=== PATIENT | female | born 1990 | race Caucasian/White ===

== ENCOUNTER 2019-10-13 17:15 | Emergency (ER) | payer OTHER, SELFPAY ==
--- NOTE | 2019-10-13 17:34 | ED.UPPEXIN ---
HPI - Extremity Injury (Upper) General Chief Complaint: Extremity Injury, Upper Stated Complaint: left wrist pain Time Seen by Provider: 10/13/19 17:34 Source: patient and RN notes reviewed History of Present Illness HPI narrative: Patient is a 29-year-old female who presents the urgent care with complaints of left wrist pain. Patient states that she was at work Sunday, lifting a heavy box, and immediately felt a sharp pain in her wrist. Patient states that she had no trauma or known injury to the wrist. Patient states that she came here for a work note . Patient was hoping to get off work due to her pain . Patient has been using ice and elevating but denies any use of [id number] medications for her pain. No other acute complaints. No acute distress noted. Patient aware of the plan of care. Related Data Home Medications Medication Instructions Recorded Confirmed No Home Medications 10/13/19 10/13/19 Allergies Allergy/AdvReac Type Severity Reaction Status Date / Time Cat Dander Allergy Unknown Unknown Uncoded 10/13/19 17:19 Review of Systems Review of Systems: Narrative: CONSTITUTIONAL: Denies fever, chills, or sweats. EYES: Denies visual changes, redness, or discharge. ENT: Denies rhinorrhea, congestion, sore throat, or otalgia. CARDIOVASCULAR: Denies chest pain, palpitations, or edema. RESPIRATORY: Denies cough or dyspnea. GASTROINTESTINAL: Denies abdominal pain, nausea, vomiting, or diarrhea. GENITOURINARY: Denies dysuria or hematuria. SKIN: Denies rash or itching. MUSCULOSKELETAL: Left wrist pain without known injury or trauma NEUROLOGIC: Denies headache, numbness, or weakness. All other systems reviewed are negative, except as documented in HPI. [facility] Social History Social History (System 09/23/19 @ 09:01 by July Long) Smoking status: Never smoker Gender identity (if verbalized by the patient): Female Comments At the time of my signature, I reviewed and agree with the nursing past medical, surgical, social, and family history. There is no relevant family history pertinent to the patient complaint. Exam Narrative: Exam Narrative: GENERAL: This is a well-nourished, well-developed patient, in no apparent distress. HEAD: normocephalic, atraumatic. EYES: PERRL. Sclera clear/white. Vision is grossly intact. EARS: External ears normal NOSE: External nose normal with no obvious nasal discharge, nares without redness, no rhinorrhea. THROAT: Mucous membranes moist NECK: Neck supple SKIN: warm, intact with no suspicious lesions or rash, good texture and turgor. NEURO: awake, alert, and oriented to person, place and time. There were no obvious focal neurologic abnormalities. EXTREMITIES: No obvious edema, ecchymosis, erythema noted to the left wrist. No obvious deformity or fracture. Fine point tenderness to left palmar aspect of thenar eminence and wrist. Positive strong left radial pulse with capillary refill less than 2 seconds. Range of motion within normal limits with mild complaints of pain. Ability to make a fist without difficulty. Course Vital Signs Vital signs: Vital Signs Temperature 98.7 F 10/13/19 17:39 Pulse Rate 83 10/13/19 17:39 Respiratory Rate 16 10/13/19 17:39 Blood Pressure 134/88 10/13/19 17:39 Pulse Oximetry 100 10/13/19 17:39 Temperature 98.7 F 10/13/19 17:39 Pulse Rate 83 10/13/19 17:39 Respiratory Rate 16 10/13/19 17:39 Blood Pressure 134/88 10/13/19 17:39 Pulse Oximetry 100 10/13/19 17:39 Reviewed MDM - Extremity Injury (Upper) MDM Narrative Medical decision making narrative: Advised the patient to wear an Vinicio wrap to the left wrist or cock up splint. Both are used as support mechanisms to decrease pain or any further injury. Use Tylenol/ibuprofen as needed for pain. Recommended patient to avoid lifting anything over 5 pounds for the next 3 to 5 days or until normal activity as tolerated. Patient is aware that we do n
[2019-10-13 17:39] VITALS: BP 134/88; PULSE 83; RESP 16; TEMP 37.1; O2SAT 100
== END 2019-10-13 17:50 | disposition home or self-care (01) ==
PROVIDERS: Emergency Provider Nurse Practitioner Family
DX: S63.502A Unspecified sprain of left wrist, initial encounter (principal); X50.0XXA Overexertion from strenuous movement or load, initial encounter
CPT/HCPCS: 99212; G0463

== ENCOUNTER 2019-10-16 18:05 | Emergency (ER) | payer OTHER, SELFPAY ==
--- NOTE | ~2019-10-16 | XR_ITS ---
EXAMINATION: XR wrist LT min 3V DATE: 10/16/2019 18:35 INDICATION: Diffuse left wrist pain post lifting injury TECHNIQUE: Posteroanterior, ulnar deviation, oblique, and lateral views of the left wrist were obtain ed. COMPARISON: none FINDINGS: Alignment is normal. No fracture. Joint spaces are normal. Soft tissues are unremarkable. IMPRESSION: 1. Negative left wrist radiographs. Reviewed, dictated and finalized at location [facility].
[2019-10-16 18:09] VITALS: BP 144/79; PULSE 93; RESP 18; TEMP 37; O2SAT 100
--- NOTE | 2019-10-16 18:59 | ED.GENADULT ---
HPI - General Adult General Chief complaint: Extremity Injury, Upper <Norberto Thapa PA-C - Last Filed: 10/16/19 19:06> Stated complaint: left wrist injjury <Norberto Thapa PA-C - Last Filed: 10/16/19 19:06> Time Seen by Provider: 10/16/19 18:14 <Norberto Thapa PA-C - Last Filed: 10/16/19 19:06> Source: patient <Norberto Thapa PA-C - Last Filed: 10/16/19 19:06> Mode of arrival: ambulatory <Norberto Thapa PA-C - Last Filed: 10/16/19 19:06> Limitations: no limitations <CALLIE Moore Last Filed: 10/16/19 19:06> History of Present Illness HPI narrative: Patient in the room is a 29-year-old female who presents with left wrist pain noting that she injured the wrist at work while holding an object and has since had pain along the radial and ulnar aspect of the wrist patient denies other injuries or complaints or prior injury has been taking [id number] medication with minimal improvement continues to have pain despite a few days duration of Vinicio wrap and pain medicine <Norberto Thapa PA-C - Last Filed: 10/16/19 19:06> Related Data Allergies/adverse reactions: Allergies Allergy/AdvReac Type Severity Reaction Status Date / Time Cat Dander Allergy Unknown Unknown Uncoded 10/16/19 18:22 <Norberto Thapa PA-C - Last Filed: 10/16/19 19:06> Review of Systems Review of Systems: All systems reviewed & are unremarkable except as noted in HPI and below <Norberto Thapa PA-C - Last Filed: 10/16/19 19:06> PMFSH Social History Social History: Social History Smoking status: Never smoker Gender identity (if verbalized by the patient): Female <CALLIE Moore Last Filed: 10/16/19 19:06> Exam Narrative: Exam Narrative: GENERAL: Well-appearing, well-nourished, and in no acute distress. HEAD: Normocephalic, atraumatic. EYES: PERRLA and EOMI. ENT: Nares clear, no rhinorrhea or epistaxis. Mucous membranes moist. EXTREMITIES: Normal range of motion. No edema. Tenderness of the radial and ulnar aspect of the wrist. No deformity noted SKIN: Warm, dry, no rash. NEURO: No focal deficits. Alert and oriented x3. Cranial nerves II through XII grossly intact. PSYCH: Normal mood and affect. <CALLIE Moore Last Filed: 10/16/19 19:06> Course Course Emergency Course: Patient in the room in no distress aware of case findings treatment plan and diagnosis <Norberto Thapa PA-C - Last Filed: 10/16/19 19:06> Vital Signs Vital signs: Vital Signs Temperature 37.0 C 10/16/19 18:09 Pulse Rate 93 10/16/19 18:09 Respiratory Rate 18 10/16/19 18:09 Blood Pressure 144/79 H 10/16/19 18:09 Pulse Oximetry 100 10/16/19 18:09 Temperature 37.0 C 10/16/19 18:09 Pulse Rate 93 10/16/19 18:09 Respiratory Rate 18 10/16/19 18:09 Blood Pressure 144/79 H 10/16/19 18:09 Pulse Oximetry 100 10/16/19 18:09 <Norberto Thapa PA-C - Last Filed: 10/16/19 19:06> Vital Signs Temperature 37.0 C 10/16/19 18:09 Pulse Rate 93 10/16/19 18:09 Respiratory Rate 18 10/16/19 18:09 Blood Pressure 144/79 H 10/16/19 18:09 Pulse Oximetry 100 10/16/19 18:09 Temperature 37.0 C 10/16/19 18:09 Pulse Rate 93 10/16/19 18:09 Respiratory Rate 18 10/16/19 18:09 Blood Pressure 144/79 H 10/16/19 18:09 Pulse Oximetry 100 10/16/19 18:09 <Jose A Vargas MD - Last Filed: 10/17/19 07:00> Medical Decision Making MDM Narrative Medical decision making narrative: Patients injury or pain is consistent with musculoskeletal etiology. No signs of neurological or vascular compromise on exam. Compartments and tisues are soft without signs of compartment syndrome. Pain is felt appropriate for further evaluation on an outpatient basis. <CALLIE Moore Last Filed: 10/16/19 19:06> Vital Signs Vital Signs: Vital Signs Temper
== END 2019-10-16 19:11 | disposition home or self-care (01) ==
PROVIDERS: Emergency Provider Emergency Medicine
DX: S63.502A Unspecified sprain of left wrist, initial encounter (principal); S66.912A Strain of unspecified muscle, fascia and tendon at wrist and hand level, left hand, initial encounter; X58.XXXA Exposure to other specified factors, initial encounter
CPT/HCPCS: 73110; 99283

== ENCOUNTER 2020-07-29 17:13 | Emergency (ER) | payer SELFPAY ==
--- NOTE | ~2020-07-29 | CT_ITS ---
EXAMINATION: CT abdomen pelvis w con DATE: 07/29/2020 19:26 INDICATION: Appendicitis TECHNIQUE: Computed tomography (CT) of the abdomen and pelvis was performed with 100 cc Omnipaque 350 intravenous contrast. Automated exposure control and iterative reconstruction technique were employe d. Exam dose: 903.66 mGy-cm total exam DLP. COMPARISON: 01/25/2019 CT abdomen pelvis FINDINGS: The lung bases are clear. Normal heart size. No pericardial or pleural effusion. The liver, gallbladder, bile ducts, spleen, pancreas, pancreatic duct, and adrenal glands and kidneys appear normal. No urinary tract calculus or hydroureteronephrosis. The urinary bladder is unremarkab le. Peripherally enhancing probable ruptured 1.7 cm right ovarian corpus luteum cyst. The uterus and adnexal areas are otherwise unremarkable. There is mild free fluid in the cul-de-sac, likely physiolo gic. Normal appendix adjacent to the right ovary and ruptured corpus luteum cyst. No bowel obstruction, bowel wall thickening, pneumatosis or intraperitoneal free air. Small fat-containing umbilical hernia. Included skeletal structures are unremarkable. IMPRESSION: 1.7 cm right ovarian probable ruptured corpus luteum cyst and mild free fluid in the cul -de-sac Normal appendix adjacent to right ovary Reviewed, dictated and finalized at [facility]. Reviewed, dictated and finalized at location [facility]. IMPRESSION: 1.7 cm right ovarian probable ruptured corpus luteum cyst and mild free fluid in the cul-de-sac Normal appendix adjacent to right ovary
[2020-07-29 17:15] VITALS: BP 130/77; PULSE 91; RESP 18; TEMP 36.1; O2SAT 96
[2020-07-29 17:31] LABS: Basophils Absolute Auto 0.1 K/mm3 (0.0-0.1); Basophils Percent Auto 0.5 % (0.2-1.2); Eosinophils Absolute Auto 0.1 K/mm3 (0-0.3); Eosinophils Percent Auto 0.5 % (0-4.4); Hematocrit 38.2 % (37.0-47.0); Hemoglobin 12.8 g/dL (12.0-15.0); Immature Granulocyte Absolute 0.03 K/mm3 (0.00-0.031); Immature Granulocyte Percent A 0.3 % (0-0.5); Lymphocytes Percent Auto 24.4 % (18.3-44.2); Mean Corpuscular HGB Conc 33.5 g/dl (32-36); Mean Corpuscular Hemoglobin 30.7 pg (26-34); Mean Corpuscular Volume 91.6 fl (80-100); Mean Platelet Volume 10.1 fl (7.4-10.4); Monocytes Absolute Auto 0.9 K/mm3 (0.1-0.6); Monocytes Percent Auto 8.4 % (2.6-8.5); Neutrophils Absolute Auto 7.3 K/mm3 (1.3-6.7); Neutrophils Percent Auto 65.9 % (45.5-73.1); Platelet Count Result 405 k/mm3 (150-375); Red Blood Count 4.17 M/mm3 (4.2-5.4); Red Cell Distribution Width 13.1 % (11.5-14.5); White Blood Count 11.1 K/mm3 (4.5-10.0)
[2020-07-29 17:44] LABS: Alanine Aminotransferase 29 U/L (4-35); Albumin Level 4.6 g/dL (3.5-5.1); Alkaline Phosphatase 75 U/L (38-126); Anion Gap 8 mmol/L (8-16); Aspartate Amino Transferase 33 U/L (14-36); Bilirubin,Total 0.2 mg/dL (0.2-1.3); Blood Urea Nitrogen 15 mg/dL (7-17); Calcium 9.6 mg/dL (8.4-10.2); Carbon Dioxide 27 mmol/L (22-30); Chloride 103 mmol/L (98-107); Estimated CRCL calculation 96 ml/min; Estimated Glomerular Filt Rate > 60; Glucose 90 mg/dL (65-105); Lipase 63 U/L (23-300); Potassium 3.8 mmol/L (3.4-5.0); Sodium 138 mmol/L (137-145)
[2020-07-29 18:24] VITALS: BP 128/73; PULSE 86
[2020-07-29 18:26] VITALS: BP 123/84; PULSE 90
[2020-07-29 18:27] VITALS: BP 119/69; PULSE 92
[2020-07-29 18:45] LABS: Add Urine Microscopic? YES; Appearance Urine Cloudy (Clear); Bacteria Urine Trace /hpf; Bilirubin Urine Negative (Negative); Blood Urine Negative (Negative); Color Urine Yellow (Yellow); Glucose Urine UA Negative (Negative); Ketones Urine Negative (Negative); Leukocyte Esterase Ur 3+ LEU/UL (Negative); Mucus Urine Rare /lpf; Nitrate Urine Negative (Negative); Protein Urine Negative (Negative); Specific Grav Ur 1.016 (1.001-1.035); Squamous Epithelial Cell Urine Moderate /hpf (Few); Urobilinogen Urine Negative mg/dL (<2.0)
[2020-07-29] MEDS: SODIUM CHLORIDE 0.9% IV 1,000 ML 999 ML IV CONT (19:02)
[2020-07-29] MEDS: FAMOTIDINE 20 MG/2 ML VIAL IV PUSH (19:02)
[2020-07-29] MEDS: ONDANSETRON INJ 4 MG/2 ML VIAL IV PUSH (19:02)
[2020-07-29 19:30] VITALS: BP 124/78; PULSE 88; RESP 16; O2SAT 98
--- NOTE | 2020-07-29 20:23 | ED.GENADULT ---
HPI - General Adult General Chief complaint: Nausea/Vomiting/Diarrhea Stated complaint: N/V x3 days, migraine Time Seen by Provider: 07/29/20 18:07 Source: patient Mode of arrival: ambulatory Limitations: no limitations History of Present Illness HPI narrative: Patient is a 30-year-old female who presents to emergency department for evaluation of vomiting for 3 days patient notes some discomfort of the abdomen localized to the periumbilical and right lower quadrant region patient notes with p.o. intake she has emesis denies any diarrhea urinary vaginal complaints or URI symptoms presents in no distress has not taken anything for her symptoms Related Data Allergies Allergy/AdvReac Type Severity Reaction Status Date / Time Cat Dander Allergy Unknown Unknown Uncoded 07/29/20 19:13 Review of Systems Review of Systems: All systems reviewed & are unremarkable except as noted in HPI and below PMFSH Past Medical History Medical History Corpus luteum cyst Irritable bowel syndrome Vomiting Social History Social History Smoking status: Never smoker Gender identity (if verbalized by the patient): Female Exam Narrative: Exam Narrative: GENERAL: Well-appearing, obese, and in no acute distress. HEAD: Normocephalic, atraumatic. EYES: PERRLA and EOMI. ENT: Nares clear, no rhinorrhea or epistaxis. Mucous membranes moist. CHEST: Clear to auscultation. No respiratory distress. No wheezes rales or rhonchi HEART: Regular rate and rhythm. No murmur heard. Normal peripheral pulses. ABDOMEN: Soft, periumbilical and right lower quadrant tenderness to palpation r, nondistended EXTREMITIES: Normal range of motion. No edema. SKIN: Warm, dry, no rash. NEURO: No focal deficits. Alert and oriented x3. PSYCH: Normal mood and affect. Course Course Emergency Course: Patient in the room no distress aware of case findings treatment plan diagnosis agreeing to follow-up as directed or to return if symptoms worsen or concerns Vital Signs Vital signs: Vital Signs Temperature 96.9 F L 07/29/20 17:15 Pulse Rate 91 07/29/20 17:15 Respiratory Rate 18 07/29/20 17:15 Blood Pressure 130/77 07/29/20 17:15 Pulse Oximetry 96 07/29/20 17:15 Temperature 96.9 F L 07/29/20 17:15 Pulse Rate 88 07/29/20 19:30 Respiratory Rate 16 07/29/20 19:30 Blood Pressure 124/78 07/29/20 19:30 Pulse Oximetry 98 07/29/20 19:30 Medical Decision Making MDM Narrative Medical decision making narrative: Patient found to have corpus luteum cyst as the likely etiology of her symptoms will be referred to gynecology and primary care for further evaluation patient was hydrated given medications tolerating p.o. intake feeling better at this time felt appropriate for outpatient reevaluation afebrile nontoxic-appearing no distress. ABCs and vital signs intact and stable. Patient provided with reasons to return Vital Signs Vital Signs: Vital Signs Temperature 96.9 F L 07/29/20 17:15 Pulse Rate 91 07/29/20 17:15 Respiratory Rate 18 07/29/20 17:15 Blood Pressure 130/77 07/29/20 17:15 Pulse Oximetry 96 07/29/20 17:15 Temperature 96.9 F L 07/29/20 17:15 Pulse Rate 88 07/29/20 19:30 Respiratory Rate 16 07/29/20 19:30 Blood Pressure 124/78 07/29/20 19:30 Pulse Oximetry 98 07/29/20 19:30 Lab Data Result diagrams: 07/29/20 17:22 07/29/20 17:22 Labs: Lab Results 07/29/20 07/29/20 07/29/20 Range/Units 17:22 17:22 18:29 WBC 11.1 H (4.5-10.0) K/mm3 RBC 4.17 L (4.2-5.4) M/mm3 Hgb 12.8 (12.0-15.0) g/dL Hct 38.2 (37.0-47.0) % MCV 91.6 (80-100) fl MCH 30.7 (26-34) pg MCHC 33.5 (32-36) g/dl RDW 13.1 (11.5-14.5) % Plt Count 405 H (150-375) k/mm3 MPV 10.1 (7.4-10.4) fl Immature Gran % (Auto) 0.3 (0-0.5) % Neut % (Auto) 6
== END 2020-07-29 20:54 | disposition home or self-care (01) ==
PROVIDERS: Emergency Provider Emergency Medicine
DX: N83.11 Corpus luteum cyst of right ovary (principal); R10.33 Periumbilical pain; K58.9 Irritable bowel syndrome, unspecified
CPT/HCPCS: 36415; 51701; 74177; 80053; 81001; 81025; 83690; 85025; 87086; 87088; 96361; 96365; 96375; 99284; J0131; J2405; J7030; Q9967

== ENCOUNTER 2020-08-03 02:47 | Emergency (ER) | payer SELFPAY ==
--- NOTE | ~2020-08-03 | CT_ITS ---
EXAMINATION: CT abdomen pelvis w con DATE: 08/03/2020 04:00 INDICATION: Right lower quadrant pain. Patient recently diagnosed with ruptured ovarian cyst. TECHNIQUE: Computed tomography (CT) of the abdomen and pelvis was performed with 100 cc Omnipaque 350 intravenous contrast. The dose-length product was 939.26 mGy-cm. Automated exposure control and iter ative reconstruction technique were employed. COMPARISON: CT dated 07/29/2020. FINDINGS: Lung bases unremarkable. Heart size normal. No significant pleural or pericardial effusion. The liver, spleen, pancreas, adrenal glands and kidneys are unremarkable. There is an involuting thomas us luteal cyst of the right ovary measuring 1.6 cm. Trace free fluid in the pelvis. No significant va scular abnormality. No lymphadenopathy. Nonobstructive bowel gas pattern. No hydronephrosis. Normal a ppendix. Small fat-containing umbilical hernia. No lytic or blastic lesions. IMPRESSION: 1. Involuting corpus luteal cyst of the right ovary measuring 1.6 cm with trace free fluid in the pel vis. Reviewed, dictated and finalized at location [facility]. IMPRESSION: 1. Involuting corpus luteal cyst of the right ovary measuring 1.6 cm with trace free fluid in the pelvis.
[2020-08-03 02:52] VITALS: BP 142/81; PULSE 91; RESP 16; TEMP 36.6; O2SAT 100
--- NOTE | 2020-08-03 03:18 | PC.NURSE ---
X2 failed attempts at peripheral start. ED nurse at bedside for peripheral start.
[2020-08-03 03:30] VITALS: BP 130/80; PULSE 68; RESP 20; TEMP 36.7
[2020-08-03 03:34] VITALS: BP 130/80; PULSE 68; RESP 18; TEMP 36.7; O2SAT 98
--- NOTE | 2020-08-03 03:35 | PC.NURSE ---
Pt presents to ED with complaints of persistent RLQ abdominal pain since . Pt states she was seen here for same on that and prescribed medications that have not provided any relief. Pt also complaints of nausea and emesis. Denies fever, chills, chest pain and sob. Pt noted to be alert and oriented x4 at this time. Pt noted to RUQ increases with palpation.
[2020-08-03] MEDS: SODIUM CHLORIDE 0.9% IV 1,000 ML 999 ML IV CONT (03:38)
[2020-08-03] MEDS: MORPHINE SULFATE (*CRX) 4 MG/ML INJ IV PUSH ×2 (03:39→04:41)
[2020-08-03] MEDS: ONDANSETRON INJ 4 MG/2 ML VIAL IV PUSH (03:39)
[2020-08-03] MEDS: KETOROLAC 30 MG/ML VIAL (*BKC) IV PUSH (03:39)
--- NOTE | 2020-08-03 03:52 | PC.NURSE ---
Pt to ct via cart.
--- NOTE | 2020-08-03 03:59 | PC.NURSE ---
Pt returned from ct.
--- NOTE | 2020-08-03 04:04 | ED.GENADULT ---
HPI - General Adult General Chief complaint: Abdominal Pain Stated complaint: abd pain Time Seen by Provider: 08/03/20 02:58 History of Present Illness HPI narrative: Patient 30-year-old female who presents to emergency department with chief complaint of abdominal pain. Patient reports she was seen in the emergency department recently for abdominal pain was found to have a corpus luteal cyst on the CT scan. Patient reports that the pain has gotten worse to the right lower quadrant and radiates to her back. Patient reports she had some nausea and some vomiting with this denies diarrhea denies fever. Patient reports the pain is not improved by anything and not worsened by anything Related Data Allergies Allergy/AdvReac Type Severity Reaction Status Date / Time Cat Dander Allergy Unknown Unknown Uncoded 07/29/20 19:13 Review of Systems Review of Systems: Narrative: A 10 system review of systems was completed on the patient and is negative except for what is stated in the HPI. Nursing and ancillary documentation was reviewed. PMFSH Past Medical History Medical History Corpus luteum cyst Irritable bowel syndrome Vomiting Social History Social History Smoking status: Never smoker Gender identity (if verbalized by the patient): Female Exam Narrative: Exam Narrative: GENERAL: Well-appearing, well-nourished, and in no acute distress. HEAD: Normocephalic, atraumatic. EYES: PERRLA and EOMI. ENT: Nares clear, no rhinorrhea or epistaxis. Mucous membranes moist. NECK: Supple. CHEST: Clear to auscultation. No respiratory distress. HEART: Regular rate and rhythm. No murmur heard. Normal peripheral pulses. ABDOMEN: Soft, tender to palpation in the right lower quadrant, nondistended, normal active bowel sounds. EXTREMITIES: Normal range of motion. No edema. SKIN: Warm, dry, no rash. NEURO: No focal deficits. Alert and oriented x3. PSYCH: Normal mood and affect. Course Course Emergency Course: CT scan shows an involuting ovarian cyst on the right Vital Signs Vital signs: Vital Signs Temperature 36.6 C 08/03/20 02:52 Pulse Rate 91 08/03/20 02:52 Respiratory Rate 16 08/03/20 02:52 Blood Pressure 142/81 H 08/03/20 02:52 Pulse Oximetry 100 08/03/20 02:52 Temperature 36.7 C 08/03/20 03:34 Pulse Rate 68 08/03/20 03:34 Respiratory Rate 18 08/03/20 03:34 Blood Pressure 130/80 08/03/20 03:34 Pulse Oximetry 98 08/03/20 03:34 Medical Decision Making Vital Signs Vital Signs: Vital Signs Temperature 36.6 C 08/03/20 02:52 Pulse Rate 91 08/03/20 02:52 Respiratory Rate 16 08/03/20 02:52 Blood Pressure 142/81 H 08/03/20 02:52 Pulse Oximetry 100 08/03/20 02:52 Temperature 36.7 C 08/03/20 03:34 Pulse Rate 68 08/03/20 03:34 Respiratory Rate 18 08/03/20 03:34 Blood Pressure 130/80 08/03/20 03:34 Pulse Oximetry 98 08/03/20 03:34 Lab Data Result diagrams: 08/03/20 04:00 08/03/20 04:00 Labs: Lab Results 08/03/20 08/03/20 08/03/20 Range/Units 04:00 04:00 04:00 WBC 7.9 (4.5-10.0) K/mm3 RBC 4.20 (4.2-5.4) M/mm3 Hgb 12.8 (12.0-15.0) g/dL Hct 39.4 (37.0-47.0) % MCV 93.8 (80-100) fl MCH 30.5 (26-34) pg MCHC 32.5 (32-36) g/dl RDW 13.2 (11.5-14.5) % Plt Count 347 (150-375) k/mm3 MPV 9.6 (7.4-10.4) fl Immature Gran % (Auto) 0.5 (0-0.5) % Neut % (Auto) 56.3 (45.5-73.1) % Lymph % (Auto) 34.1 (18.3-44.2) % [place] % (Auto) 7.6 (2.6-8.5) % Eos % (Auto) 1.0 (0-4.4) % Baso % (Auto) 0.5 (0.2-1.2) % Lymph # (Auto) 2.69 (0.9-3.2) K/mm3 [place] # (Auto) 0.6 (0.1-0.6) K/mm3 Eos # (Auto) 0.1 (0-0.3) K/mm3 Baso # (Auto) 0.0 (0.0-0.1) K/mm3 Abs Immat Gran (auto) 0.04 H (0.00-0.031) K/mm3 Absolute Neuts (auto) 4.5
[2020-08-03 04:12] LABS: Basophils Percent Auto 0.5 % (0.2-1.2); Eosinophils Absolute Auto 0.1 K/mm3 (0-0.3); Hematocrit 39.4 % (37.0-47.0); Hemoglobin 12.8 g/dL (12.0-15.0); Immature Granulocyte Absolute 0.04 K/mm3 (0.00-0.031); Immature Granulocyte Percent A 0.5 % (0-0.5); Lymphocytes Absolute Auto 2.69 K/mm3 (0.9-3.2); Lymphocytes Percent Auto 34.1 % (18.3-44.2); Mean Corpuscular HGB Conc 32.5 g/dl (32-36); Mean Corpuscular Hemoglobin 30.5 pg (26-34); Mean Corpuscular Volume 93.8 fl (80-100); Mean Platelet Volume 9.6 fl (7.4-10.4); Monocytes Absolute Auto 0.6 K/mm3 (0.1-0.6); Monocytes Percent Auto 7.6 % (2.6-8.5); Neutrophils Absolute Auto 4.5 K/mm3 (1.3-6.7); Neutrophils Percent Auto 56.3 % (45.5-73.1); Platelet Count Result 347 k/mm3 (150-375); Red Cell Distribution Width 13.2 % (11.5-14.5); White Blood Count 7.9 K/mm3 (4.5-10.0)
[2020-08-03 04:23] LABS: INR 0.9; Prothrombin Time 12.7 Seconds (11.1-14.7)
[2020-08-03 04:27] LABS: Alanine Aminotransferase 27 U/L (4-35); Albumin Level 4.3 g/dL (3.5-5.1); Alkaline Phosphatase 76 U/L (38-126); Anion Gap 8 mmol/L (8-16); Aspartate Amino Transferase 26 U/L (14-36); Bilirubin,Total 0.1 mg/dL (0.2-1.3); Blood Urea Nitrogen 11 mg/dL (7-17); Calcium 9.1 mg/dL (8.4-10.2); Carbon Dioxide 26 mmol/L (22-30); Chloride 105 mmol/L (98-107); Estimated CRCL calculation 107 ml/min; Estimated Glomerular Filt Rate > 60; Glucose 88 mg/dL (65-105); Lipase 85 U/L (23-300); Potassium 4.1 mmol/L (3.4-5.0); Sodium 139 mmol/L (137-145)
--- NOTE | 2020-08-03 05:00 | PC.NURSE ---
IV fluids continue to infuse due to positional site.
--- NOTE | 2020-08-03 05:09 | PC.NURSE ---
Pt resting on cart with no complaints or concerns voiced at this time. Pt updated on poc. All questions and concerns addressed. Will when bolus infusion completes.
[2020-08-03 05:19] VITALS: BP 135/74; PULSE 89; RESP 20
--- NOTE | 2020-08-03 06:03 | PC.NURSE ---
Pt now denies all pain and discomfort at this time and states I feel so much better . Pt able to ambulate from ED without difficulty. Pt in no obvious distress at this time and was advised to follow up with pcp and pt voices her understanding.
[2020-08-03 06:05] VITALS: BP 127/80; PULSE 93; RESP 18; TEMP 36.7; O2SAT 100
== END 2020-08-03 06:14 | disposition home or self-care (01) ==
PROVIDERS: Emergency Provider Emergency Medicine
DX: N83.201 Unspecified ovarian cyst, right side (principal); R10.84 Generalized abdominal pain; K58.9 Irritable bowel syndrome, unspecified
CPT/HCPCS: 36415; 74177; 80053; 81025; 83690; 85025; 85610; 85730; 96361; 96374; 96375; 96376; 99284; J1885; J2270; J2405; J7030; Q9967

== ENCOUNTER → 2022-01-30 | Emergency (ER) | payer BC, SELFPAY ==
[2022-01-30 05:18] VITALS: BP 132/82; PULSE 77; RESP 17; TEMP 36.8; O2SAT 98
[2022-01-30 05:42] VITALS: BP 139/89; PULSE 74; RESP 16; O2SAT 98
[2022-01-30] MEDS: ACETAMINOPHEN 500 MG TABLET 1000 MG PO (06:19)
[2022-01-30] MEDS: methocarbamoL 750 MG TABLET 1500 MG PO (06:19)
[2022-01-30] MEDS: IBUPROFEN 400 MG TABLET 800 MG PO (06:19)
--- NOTE | 2022-01-30 06:19 | ED.GENADULT ---
HPI - General Adult General Chief complaint: Headache Stated complaint: Migraine, L shoulder pain Time Seen by Provider: 01/30/22 05:39 History of Present Illness HPI narrative: this is a 31-year-old female history of migraines presenting to ED with a migraine, left neck pain and left shoulder pain. The pain started yesterday while she was cooking dinner. She has noticed pain on the left side of her neck. It is difficult to move her neck due to the cramping. She also has shooting sensations down her left hand and along her middle finger.. After this pain started she also started to have a pounding headache on the left side. It is associated with photophobia and phonophobia. Patient has been unable to sleep and came to the emergency department seeking relief from her pain. She denies numbness tingling or weakness to any other extremities. Related Data Allergies Allergy/AdvReac Type Severity Reaction Status Date / Time Cat Dander Allergy Unknown Unknown Uncoded 07/29/20 19:13 Review of Systems Review of Systems: CONSTITUTIONAL: Denies night sweats. EYES: No eye pain ENT: Denies rhinorrhea CARDIOVASCULAR: Denies palpitations RESPIRATORY: Denies hemoptysis GASTROINTESTINAL: Denies hematemesis GENITOURINARY: Denies hematuria. SKIN: Denies rash MUSCULOSKELETAL: Denies myalgia. NEUROLOGIC: Denies weakness. PSYCHIATRIC: Denies delusions PMFSH Past Medical History Medical History Corpus luteum cyst Irritable bowel syndrome Vomiting Social History Social History Smoking status: Never smoker Gender identity (if verbalized by the patient): Female Exam Narrative: APPEARANCE: patient appears uncomfortable Head atraumatic. EYES: PERRLA/EOMI, NOSE: Normal no drainage NECK: patient has tenderness to palpation over the left paracervical muscles. They are tight to the touch. Axial loading of the neck recreates the shooting sensation down her left arm. RESPIRATORY: CTAB, No increased work of breathing. CARDIOVASCULAR: S1S2 appreciated ABDOMINAL: Soft, nontender, nondistended, MUSCULOSKELETAl: No obvious deformities NEURO: Alert. Cranial nerves 2-12 grossly intact. Sensation light touch, motor function cerebellar function intact for 4 extremities. Gait exam was normal. SKIN:: Warm, dry. Normal color PSYCHIATRIC: Normal affect Course Vital Signs Vital signs: Vital Signs Temperature 98.2 F 01/30/22 05:18 Pulse Rate 77 01/30/22 05:18 Respiratory Rate 17 01/30/22 05:18 Blood Pressure 132/82 01/30/22 05:18 Pulse Oximetry 98 01/30/22 05:18 Oxygen Delivery Room Air 01/30/22 05:18 Temperature 98.2 F 01/30/22 05:18 Pulse Rate 74 01/30/22 05:42 Respiratory Rate 16 01/30/22 05:42 Blood Pressure 139/89 01/30/22 05:42 Pulse Oximetry 98 01/30/22 05:42 Oxygen Delivery Room Air 01/30/22 05:18 Medical Decision Making MDM Narrative Medical decision making narrative: This is a 31-year-old female presenting ED with neck pain and a headache. The patient has tightness of the muscles on the left side of her neck and symptoms are consistent with T7 cervical radiculopathy. She will be treated with Motrin Tylenol Robaxin. Additionally she is having a pounding headache that she relates to her migraines. She will be given IM Compazine and Benadryl. Patient will be discharged with primary care follow-up. Vital Signs Vital Signs: Vital Signs Temperature 98.2 F 01/30/22 05:18 Pulse Rate 77 01/30/22 05:18 Respiratory Rate 17 01/30/22 05:18 Blood Pressure 132/82 01/30/22 05:18 Pulse Oximetry 98 01/30/22 05:18 Oxygen Delivery Room Air 01/30/22 05:18 Temperature 98.2 F 01/30/22 05:18 Pulse Rate 74 01/30/22 05:42 Respiratory Rate 16 01/30/22 05:42 Blood Pressure 139/89 01/30/22 05:42 Pulse Oximetry 98 01/30/22 05:42 Oxygen D
[2022-01-30] MEDS: PROCHLORPERAZINE EDISYLATE 10 MG/2 ML VIAL IM (06:53)
[2022-01-30] MEDS: diphenhydrAMINE HCl INJ 50 MG/ML VIAL 25 MG IM (06:53)
== END | disposition home or self-care (01) ==
PROVIDERS: Emergency Provider Emergency Medicine; PCP Internal Medicine
DX: G43.909 Migraine, unspecified, not intractable, without status migrainosus (principal); M54.12 Radiculopathy, cervical region; K58.9 Irritable bowel syndrome, unspecified
CPT/HCPCS: 96372; 99284; A9270; J0780; J1200

== ENCOUNTER 2022-04-06 21:52 | Emergency (ER) | payer OTHER, MEDICAID, SELFPAY ==
--- NOTE | ~2022-04-06 | XR_ITS ---
EXAMINATION: XR chest 1V portable DATE: 04/06/2022 23:41 INDICATION: Upper respiratory tract infection with cough and congestion TECHNIQUE: frontal view of the chest was obtained. COMPARISON: Chest radiograph dated 08/04/2018 FINDINGS: The lungs remain clear with no focal airspace opacities, pulmonary edema, pleural effusion or pneumot horax. The cardiomediastinal silhouette is normal. Visualized bones and soft tissues are unremarkable . IMPRESSION: 1. No acute cardiopulmonary disease. Reviewed, dictated and finalized at location A. CUTTER OPERATOR
[2022-04-06 22:12] VITALS: BP 131/90; PULSE 76; RESP 20; TEMP 36.6; O2SAT 97
--- NOTE | 2022-04-06 23:31 | ED.URI ---
HPI - URI/Sore Throat General Chief Complaint: Upper Respiratory Infection Stated Complaint: upper resp Time Seen by Provider: 04/06/22 22:08 Source: patient Mode of arrival: ambulatory Limitations: no limitations History of Present Illness HPI Narrative: Patient is a 31-year-old female who presents the ED with report of upper respiratory symptoms. Patient reports having a cough for the past 1 week, as well as congestion, sore throat, rhinitis, headache, nausea, muscle aches for the past 2 to 3 days. Her family members have been sick as well. She notes her toddler tested positive for influenza A last week. Patient has been taking [id number] cough and cold medicines, but has not taken any Tylenol or ibuprofen. Denies any significant fever, denies abdominal pain, chest pain, shortness of breath. Patient is in the ED with her 12-year-old son who has similar symptoms. Patient is vaccinated for covid, but not influenza. Related Data Allergies Allergy/AdvReac Type Severity Reaction Status Date / Time Cat Dander Allergy Unknown Unknown Uncoded 07/29/20 19:13 Review of Systems Review of Systems: CONSTITUTIONAL: Denies fever. ENT: Reports rhinorrhea, congestion, sore throat. CARDIOVASCULAR: Denies chest pain. RESPIRATORY: Reports cough. Denies dyspnea. GASTROINTESTINAL: Reports nausea. Denies abdominal pain, vomiting, or diarrhea. MUSCULOSKELETAL: Reports myalgias. NEUROLOGIC: Reports DUNNE. All systems reviewed & are unremarkable except as noted in HPI and below PMFSH Past Medical History Medical History (Updated 04/07/22 @ 01:06 by Caroline Betancourt PA-C) Corpus luteum cyst Irritable bowel syndrome Vomiting Surgical History Surgical History (Updated 04/06/22 @ 23:33 by Caroline Betancourt PA-C) No pertinent past surgical history Social History Social History Smoking status: Never smoker Gender identity (if verbalized by the patient): Female Exam Narrative: GENERAL: Well appearing, well-nourished, non-toxic, in no acute distress. HEAD: Normocephalic, atraumatic. EENT: PERRLA, EOMI, conjunctiva clear, no nasal drainage. Mild posterior pharynx erythema, no tonsillar hypertrophy or exudate. NECK: Supple. No adenopathy, no masses. RESPIRATORY: Airway patent, respirations nonlabored. Clear to auscultation bilaterally, no rales, rhonchi, wheezing. Occasional coughing on exam. CARDIOVASCULAR: Regular rate and rhythm without murmurs, rubs, or gallops. Radial pulses 2+ and equal bilaterally. MUSCULOSKELETAL: Moves all extremities. Strength/ROM intact without gross deformities. SKIN: Warm, dry, normal color. No rashes. NEURO: A&O X3. Speech clear. Cranial nerves II-XII grossly intact. Steady gait. No ataxic movements. PSYCHIATRIC: Appropriate mood and affect. Normal interaction. Course Vital Signs Vital signs: Vital Signs Temperature 97.8 F 04/06/22 22:12 Pulse Rate 76 04/06/22 22:12 Respiratory Rate 20 04/06/22 22:12 Blood Pressure 131/90 04/06/22 22:12 Pulse Oximetry 97 04/06/22 22:12 Temperature 97.8 F 04/06/22 22:12 Pulse Rate 76 04/06/22 22:12 Respiratory Rate 20 04/06/22 22:12 Blood Pressure 131/90 04/06/22 22:12 Pulse Oximetry 97 04/06/22 22:12 MDM - URI/Sore Throat MDM Narrative Medical decision making narrative: Patient presented to ED with 3-day history of URI symptoms. Family member recently diagnosed with influenza A. Vital stable upon arrival. Afebrile. Clinical exam fairly unremarkable. Chest x-ray reviewed by myself without acute cardiopulmonary abnormality. Patient tested positive for COVID-19 and influenza A. Discussed lab results and management of both at home. Will prescribe Tessalon Perles and Zofran for further symptom management. Patient given reasons to return. Advised to follow with primary care doctor upon resolution of symptoms. She agrees with plan. Medical Records Att
[2022-04-06 23:41] LABS: Influenza A QL RT-PCR Positive (Negative); Influenza B QL RT-PCR Negative (Negative); SARS-CoV-2 RNA PCR Positive
== END 2022-04-07 01:37 | disposition home or self-care (01) ==
PROVIDERS: Emergency Medicine; Emergency Provider Physician Assistant; PCP Internal Medicine
DX: U07.1 COVID-19 (principal); J10.1 Influenza due to other identified influenza virus with other respiratory manifestations; K58.9 Irritable bowel syndrome, unspecified
CPT/HCPCS: 71045; 87636; 99283

== ENCOUNTER 2022-07-03 08:13 | Outpatient (CLI) | payer OTHER, MEDICAID, SELFPAY ==
[2022-07-03 18:41] LABS: Basophils Percent Auto 0.6 % (0.2-1.2); Eosinophils Absolute Auto 0.1 K/mm3 (0-0.3); Eosinophils Percent Auto 0.7 % (0-4.4); Hematocrit 38.8 % (37.0-47.0); Hemoglobin 12.3 g/dL (12.0-15.0); Immature Granulocyte Absolute 0.02 K/mm3 (0.00-0.031); Immature Granulocyte Percent A 0.3 % (0-0.5); Lymphocytes Absolute Auto 1.94 K/mm3 (0.9-3.2); Lymphocytes Percent Auto 27.4 % (18.3-44.2); Mean Corpuscular HGB Conc 31.7 g/dl (32-36); Mean Corpuscular Hemoglobin 29.2 pg (26-34); Mean Corpuscular Volume 92.2 fl (80-100); Monocytes Absolute Auto 0.5 K/mm3 (0.1-0.6); Monocytes Percent Auto 7.3 % (2.6-8.5); Neutrophils Absolute Auto 4.5 K/mm3 (1.3-6.7); Neutrophils Percent Auto 63.7 % (45.5-73.1); Platelet Count Result 401 k/mm3 (150-375); Red Blood Count 4.21 M/mm3 (4.2-5.4); Red Cell Distribution Width 13.5 % (11.5-14.5); White Blood Count 7.1 K/mm3 (4.5-10.0)
[2022-07-03 19:54] LABS: LDL Cholesterol Direct 111 mg/dL
[2022-07-03 20:01] LABS: Alanine Aminotransferase 27 U/L (6-35); Albumin Level 4.8 g/dL (3.5-5.1); Alkaline Phosphatase 74 U/L (38-126); Anion Gap 7 mmol/L (8-16); Aspartate Amino Transferase 30 U/L (14-36); Bilirubin,Total 0.5 mg/dL (0.2-1.3); Blood Urea Nitrogen 13 mg/dL (7-17); Calcium 8.9 mg/dL (8.4-10.2); Carbon Dioxide 27 mmol/L (22-30); Chloride 101 mmol/L (98-107); Cholesterol 195 mg/dL (0-200); Estimated Glomerular Filt Rate > 60; Glucose 73 mg/dL (65-110); HDL Direct 48 mg/dL; Potassium 4.4 mmol/L (3.4-5.0); Sodium 135 mmol/L (137-145); Triglycerides 102 mg/dL (<150)
[2022-07-03 20:12] LABS: Thyroid Stimulating Hormone 0.885 uIU/mL (0.465-4.680)
== END 2022-07-03 08:14 | disposition home or self-care (01) ==
LOC: ANHGOSHLAB 08:15
PROVIDERS: PCP Family Medicine; Visit Provider Family Medicine
DX: Z00.00 Encounter for general adult medical examination without abnormal findings (principal)
CPT/HCPCS: 36415; 80053; 80061; 84443; 85025

== ENCOUNTER → 2022-07-03 08:25 | Outpatient (CLI) | payer OTHER, MEDICAID, SELFPAY ==
--- NOTE | ~2022-07-03 | XR_ITS ---
XR cervical spine 4-5V 07/03/2022 08:37 Indication: Numbness in the fingers. Procedure: 4 view cervical spine Comparison: No prior studies for comparison. Findings: Normal cervical lordosis. Vertebral body and disc heights are preserved. No prevertebral so ft tissue swelling. Odontoid process is normal. Lung apices are normal. Odontoid process is unremarka ble with normal alignment of the lateral masses. Impression: 1: No significant abnormality of the cervical spine. Reviewed, dictated and finalized at location B. ICAL PRODUCTION TECHNICIAN Impression: 1: No significant abnormality of the cervical spine.
== END ==
PROVIDERS: PCP Family Medicine; Visit Provider Family Medicine
DX: R20.0 Anesthesia of skin (principal)
CPT/HCPCS: 72050

== ENCOUNTER 2022-08-03 15:30 | Outpatient (RCR) | payer OTHER, MEDICAID, SELFPAY ==
--- NOTE | 2022-07-18 16:25 | PTOPEVAL1 ---
Assessment and note entered by Catie Jones, PT, DPT Evaluation Information Assessment Status Evaluation Diagnosis neuropathy Onset Mar 2022 Subjective Information Pt states in March she got the flu and Covid and this caused her to throw up so much she got a pinched nerve in her shoulder. She states she no longer has a pinched nerve but her L hand is almost completely numb. She has been given a muscle relator without any relief. 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 She states sometimes it will cramp up and she will have to use her other hand to help open it back up. Pt had a tendon release in her L wrist 2 years ago without any symptoms afterwards. Reported Pain Level Pain Score 8: Self Report Assessment PT Clinical Summary Lizzette presents to therapy today for her initial evaluation with a diagnosis of radiculopathy. Today she reports near complete numbness in her L hand with intermittent tingling sensations. Today she demonstrates positive upper limb tension tests on the LLE and a decreased in her symptoms with cervical distraction. Skilled physical therapy services are indicated to address the deficits noted above, to decrease peripheral symptoms, and to progress towards a return to baseline function . Plan of Care Interventions Electrical Stimulation,Hot Pack/Cold Pack,Manual Therapy,Mechanical Traction,Neuro Re-education, Patient/Caregiver Educati,Therapeutic Activities, Therapeutic Exercise PT Services Indicated Yes Treatment Frequency and 2x/wk for 2 wks Duration These treatments will address the objective and functional deficits as defined above. The patient will be advanced safely and appropriately in order for the patient to progress towards his/her prior level of function. Additional exercises will be introduced and as well as a comprehensive home exercise program upon discharge, if needed, ?to ensure carryover of functional gains achieved in the clinic. This treatment plan has been reviewed and agreement upon by the patient.
--- NOTE | 2022-08-03 15:49 | PTOPDC ---
Assessment and note entered by Catie Jones, PT, DPT Evaluation Information Assessment Status Discharge Diagnosis neuropathy Onset Mar 2022 Subjective Information Pt reports no charges, good nor bad during therapy . She states during supine mechanics traction she received a major relief of symptoms but as soon as the traction stopped and she stood up again the symptoms came back. She reports good compliance with her HEP. She states she had another pinched nerve in her neck over the weekend increasing her pain from 8/10 to 9/10. Reported Pain Level Pain Score 7: Self Report Assessment PT Clinical Summary Lizzette presents to therapy today for her progress report following 4 visits of skilled therapy to treat her neck pain with L sided radiculopathy. Today she reports no improvement in her symptoms. She reports improvements in her body awareness without a change in her numbness or tingling. Pt will be discharged at this time d/t poor therapy progress with instructions to follow up with her referring provider to discuss a further POC. Plan of Care Interventions Electrical Stimulation,Hot Pack/Cold Pack,Manual Therapy,Mechanical Traction,Neuro Re-education, Patient/Caregiver Educati,Therapeutic Activities, Therapeutic Exercise PT Services Indicated No Treatment Frequency and discharge Duration
== END 2022-09-14 08:57 | disposition home or self-care (01) ==
LOC: ANHGOSHPT 15:30
PROVIDERS: PCP Family Medicine; Visit Provider Family Medicine
DX: M54.12 Radiculopathy, cervical region (principal)
CPT/HCPCS: 97012; 97110; 97112; 97140; 97161

== ENCOUNTER 2022-08-09 21:35 | Emergency (ER) | payer OTHER, MEDICAID, SELFPAY ==
[2022-08-09 21:39] VITALS: BP 132/81; PULSE 71; RESP 14; TEMP 36.7; O2SAT 100
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
[2022-08-09] MEDS: ACETAMINOPHEN 500 MG TABLET 1000 MG PO (22:07)
[2022-08-09] MEDS: IBUPROFEN 400 MG TABLET 800 MG PO (22:08)
[2022-08-09] MEDS: methocarbamoL 750 MG TABLET 1500 MG PO (22:20)
== END 2022-08-09 22:25 | disposition home or self-care (01) ==
LOC: ANHED 22:07
PROVIDERS: Emergency Provider Emergency Medicine; PCP Family Medicine
DX: M54.12 Radiculopathy, cervical region (principal)
CPT/HCPCS: 99283; A9270

== ENCOUNTER 2022-08-15 09:35 | Outpatient (CLI) | payer OTHER, MEDICAID, SELFPAY ==
--- NOTE | 2022-08-15 11:00 | NEURO_ITS ---
Impression: # Complains of numbness of left hand. # Subtle evolving left Carpal Tunnel Syndrome. # No ulnar neuropathy. # Normal needle/EMG exam. Motor Nerve Conduction Upper Extremities Median Nerve Conduction Velocity (m/sec) Terminal Latency (msec) Response Voltage(mV) Elbow-Wrist Wrist Elbow Wrist Right 60 2.3 2 2 Left 61 3.0 3 4 Ulnar Nerve Conduction Velocity (m/sec) Terminal Latency (msec) Response Voltage(mV) Above Elbow Below Elbow Wrist Above Elbow Below Elbow Wrist Right 60 2.2 8 8 Left 60 2.0 6 7 F-Wave Latency Median (ms) Ulnar (ms) Right 26.7 25.7 Left 26.8 26.1 Sensory Nerve Conduction Upper Extremities Median Nerve Stimulation Terminal Latency (msec) Wrist/Digit Response Voltage (uV) Wrist Right 2.4/2.3 67/87 Left 2.5/2.5 76/67 Ulnar Nerve Stimulation Terminal Latency (msec) Wrist/Digit Response Voltage (uV) Wrist Right 2.0 63 Left 2.1 54 Radial Nerve Terminal Latency (msec) Response Voltage(mV) Right 2.1 20 Left 2.0 27 Left Right Muscles Examined Fibrillation Fasciculation Scarcity Voltage Duration Left Right Left Right Left Right Left Right Left Right Deltoid Biceps X X Brachioradialis Triceps X X Pronator Teres X X Ext Indicis X X Ext Digitorum X X Abd Poll Brev X X 1st Dorsal Interosseus X X Abd Dig Min MTDD
== END 2022-08-15 09:36 | disposition home or self-care (01) ==
LOC: ANHNEURO 09:35
PROVIDERS: PCP Family Medicine; Visit Provider Physician Assistant
DX: G56.22 Lesion of ulnar nerve, left upper limb (principal)
CPT/HCPCS: 95886; 95911

== ENCOUNTER → 2022-08-25 08:10 | Outpatient (CLI) | payer OTHER, MEDICAID, SELFPAY ==
--- NOTE | ~2022-08-25 | MR_ITS ---
EXAMINATION: MR cervical spine wo con DATE: 08/25/2022 08:48 INDICATION: Left hand numbness and tingling. TECHNIQUE: Magnetic resonance imaging (MRI) of the cervical spine was performed without intravenous c ontrast. Sequences included sagittal T2-weighted FSE, sagittal T2-weighted FS FSE, sagittal T1-weight ed FSE, axial MERGE, and axial T2-weighted FSE. COMPARISON: Cervical spine radiographs 07/03/2022 FINDINGS: There is 4 degrees levocurvature of cervicothoracic spine. There is mild kyphosis of lower cervical spine. Vertebral body heights are normal. Intervertebral disc heights are normal. 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 The syringohydromyelia measures up to 12 mm in diameter. The cerebellar to nsils extend 4 mm inferior to the foramen magnum, which is normal. The following disc levels are spec ifically discussed: C2-C3: The disc does not extend beyond the endplate margin. There is no uncovertebral joint osteoarth ritis. There is mild bilateral facet joint osteoarthritis. There is no neural foraminal stenosis. The re is no central canal stenosis. C3-C4: The disc does not extend beyond the endplate margin. There is no uncovertebral joint osteoarth ritis. There is mild right and moderate left facet joint osteoarthritis. There is no neural foraminal stenosis. There is no central canal stenosis. C4-C5: The disc does not extend beyond the endplate margin. There is mild right uncovertebral joint o steoarthritis. There is moderate bilateral facet joint osteoarthritis. There is mild right neural for aminal stenosis. There is no central canal stenosis. C5-C6: There is a central extrusion. There is mild bilateral uncovertebral joint osteoarthritis. Ther e is mild bilateral facet joint osteoarthritis. There is no neural foraminal stenosis. There is mild central canal stenosis. C6-C7: The disc does not extend beyond the endplate margin. There is no uncovertebral joint osteoarth ritis. There is no facet joint osteoarthritis. There is no neural foraminal stenosis. There is no samantha tral canal stenosis. C7-T1: The disc does not extend beyond the endplate margin. There is no uncovertebral joint osteoarth ritis. There is no facet joint osteoarthritis. There is no neural foraminal stenosis. There is no samantha tral canal stenosis. IMPRESSION: 1. 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 Cervical spin e MRI without and with contrast is recommended to exclude neoplasm. Reviewed, dictated and finalized at location A. IMPRESSION: 1. Enlargement and abnormal signal in the cervical spinal cord with syringohydr omyelia. Cervical spine MRI without and with contrast is recommended to exclude neoplasm.
== END ==
PROVIDERS: PCP Family Medicine; Visit Provider Physician Assistant
DX: G95.0 Syringomyelia and syringobulbia (principal)
CPT/HCPCS: 72141

== ENCOUNTER → 2022-08-31 09:39 | Outpatient (CLI) | payer OTHER, MEDICAID, SELFPAY ==
--- NOTE | ~2022-08-31 | MR_ITS ---
MRI of the cervical spine Clinical History: Paresthesia, abnormal prior exam Technique: Axial T2-weighted and gradient images, and sagittal T1-weighted, T2-weighted, and STIR shant ges were acquired.. Following intravenous administration of 20 cc MultiHance gadolinium, T1-weighted fat-sat imaging was performed in the axial and sagittal planes. COMPARISON: 08/25/2022 Findings: There is no fracture or subluxation of the cervical spine. Vertebral bodies maintain alignm ent. No bone marrow signal abnormality seen. At C2-C3, C3-C4, and C4-C5, there is no disc bulge or herniation. No spinal canal stenosis, cord comp ression, or neural foraminal narrowing at these levels. At C5-C6, there is disc osteophyte complex, resulting in mild canal stenosis and mild ventral cord co mpression. Bilateral neural foramina are preserved. At C6-C7, there is no disc bulge or herniation. No spinal canal stenosis, cord compression, or neural foraminal narrowing. Again identified is syringomyelia at the C1-C2 levels, measuring up to 3.6 cm in craniocaudal extent, and 1.1 x 1.0 cm in transverse dimensions. There is extensive T2 hyperintense signal throughout the remainder of the cervical cord, from the C2-C3 level through T1, with mild expansion/prominence of th e cord at the C6 level. No abnormal postcontrast enhancement identified. Paravertebral soft tissues are unremarkable. Impression: Stable extensive abnormal signal in the cervical cord, including diffuse T2 hyperintense signal with superimposed single mildly at the C1-C2 levels. Appearance is unchanged from recent prior exam. No ab normal postcontrast enhancement identified. Lack of postcontrast enhancement mitigates against neopla stic disease. Consider transverse myelitis or other inflammatory conditions of the spinal cord. Mild ventral cord compression at C5-C6 related to disc osteophyte complex. Reviewed, dictated and finalized at location M. Impression: Stable extensive abnormal signal in the cervical cord, including diffuse T2 hyp erintense signal with superimposed single mildly at the C1-C2 levels. Appearanc e is unchanged from recent prior exam. No abnormal postcontrast enhancement elvia ntified. Lack of postcontrast enhancement mitigates against neoplastic disease. Consider transverse myelitis or other inflammatory conditions of the spinal co rd. Mild ventral cord compression at C5-C6 related to disc osteophyte complex.
== END ==
PROVIDERS: PCP Family Medicine; Visit Provider Nurse Practitioner Family
DX: M54.12 Radiculopathy, cervical region (principal)
CPT/HCPCS: 72156; A9577

== ENCOUNTER 2023-01-29 09:03 | Emergency (ER) | payer OTHER, MEDICAID, SELFPAY ==
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
[2023-01-29 09:19] VITALS: BP 101/67; PULSE 79; RESP 16; TEMP 36.4; O2SAT 99
== END 2023-01-29 09:52 | disposition home or self-care (01) ==
PROVIDERS: Emergency Provider Nurse Practitioner Family; PCP Family Medicine
DX: J02.0 Streptococcal pharyngitis (principal); Z86.16 Personal history of COVID-19
CPT/HCPCS: 87880; 99213; G0463

== ENCOUNTER 2023-03-09 13:48 | Outpatient (CLI) | payer OTHER, MEDICAID, SELFPAY ==
--- NOTE | ~2023-03-09 | MR_ITS ---
EXAMINATION: MR venography brain DATE: 03/09/2023 14:51 INDICATION: Tinnitus TECHNIQUE: 1. Magnetic resonance venography (MRV) of the head was performed without intravenous contrast by cor onal and sagittal 2D [id number] technique and sagittal Inhance 3D velocity technique. Rotating ma ximum intensity projections were constructed. 2. Magnetic resonance angiography (MRA) of the brain was performed without intravenous contrast by th e 3D [id number] technique. COMPARISON: None. FINDINGS: MRA: There is normal flow related signal seen within the vertebral, basilar and internal carotid arteries. There is no proximal stenosis. There are no aneurysms identified. Both A1 and P1 segments are pat ent. The P1 segments are relatively small with contribution to the posterior cerebral artery supplied via a larger caliber with bilateral patent posterior communicating arteries. There is also a small p atent anterior communicator artery. Flow in the cerebral arteries is symmetric. MRV: The superior sagittal sinus, transverse sinuses, sigmoid sinuses, and proximal internal jugular veins are patent. The internal cerebral veins, vein of Juan, and straight sinus are patent. IMPRESSION: 1. Normal MRA and MRV of the head. Reviewed, dictated and finalized at location A.
--- NOTE | ~2023-03-09 | MR_ITS ---
EXAMINATION: MR lumbar spine wo con DATE: 03/09/2023 14:51 INDICATION: Low back pain. Left leg pain. Sacral radiculopathy. TECHNIQUE: Magnetic resonance imaging (MRI) of the lumbar spine was performed without intravenous con trast. Sequences included sagittal T2-weighted FSE, sagittal T2-weighted FS FSE, sagittal T1-weighted FSE, and axial T2-weighted FSE. COMPARISON: Lumbar spine radiographs 05/25/2019 FINDINGS: Bone alignment is normal. Vertebral body heights and intervertebral disc heights are normal . The distal spinal cord signal intensity is normal. The conus medullaris is at L1. The following dis c levels are specifically discussed: L1-L2: The disc does not extend beyond the endplate margin. There is no facet joint osteoarthritis. T here is no neural foraminal stenosis. There is no central canal stenosis. L2-L3: The disc does not extend beyond the endplate margin. There is mild bilateral facet joint osteo arthritis. There is no neural foraminal stenosis. There is no central canal stenosis. L3-L4: The disc does not extend beyond the endplate margin. There is mild right and moderate left fac et joint osteoarthritis. There is no neural foraminal stenosis. There is no central canal stenosis. L4-L5: The disc is bulging and has an annular fissure. There is moderate bilateral facet joint osteoa rthritis. There is mild bilateral neural foraminal stenosis. There is mild central canal stenosis. L5-S1: The disc does not extend beyond the endplate margin. There is moderate bilateral facet joint o steoarthritis. There is no neural foraminal stenosis. There is no central canal stenosis. IMPRESSION: 1. Mild lumbar spondylosis. Reviewed, dictated and finalized at location E. IMPRESSION: 1. Mild lumbar spondylosis.
== END 2023-03-09 13:49 ==
DX: M54.18 Radiculopathy, sacral and sacrococcygeal region (principal); M43.06 Spondylolysis, lumbar region
CPT/HCPCS: 70544; 72148

== ENCOUNTER 2023-03-25 08:11 | Emergency (ER) | payer OTHER, MEDICAID, SELFPAY ==
[2023-03-25 08:23] VITALS: BP 101/78; PULSE 80; RESP 16; TEMP 36.1; O2SAT 98
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
== END 2023-03-25 08:56 | disposition home or self-care (01) ==
PROVIDERS: Emergency Provider Registered Nurse; PCP Family Medicine
DX: J40 Bronchitis, not specified as acute or chronic (principal); Z86.16 Personal history of COVID-19
CPT/HCPCS: 99213; G0463

== ENCOUNTER 2023-06-10 09:58 | Emergency (ER) | payer OTHER, MEDICAID, SELFPAY ==
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
[2023-06-10 10:16] VITALS: BP 105/75; PULSE 77; RESP 16; TEMP 36.6; O2SAT 100
== END 2023-06-10 11:07 | disposition home or self-care (01) ==
PROVIDERS: Emergency Provider Nurse Practitioner; PCP Family Medicine
DX: J06.9 Acute upper respiratory infection, unspecified (principal); Z20.822 Contact with and (suspected) exposure to COVID-19; Z86.16 Personal history of COVID-19
CPT/HCPCS: 87081; 87426; 87804; 87880; 99213; G0463

== ENCOUNTER 2023-06-19 09:07 | Emergency (ER) | payer OTHER, MEDICAID, SELFPAY ==
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
[2023-06-19 09:15] VITALS: BP 148/94; PULSE 72; RESP 18; TEMP 36.3; O2SAT 100
== END 2023-06-19 09:28 | disposition home or self-care (01) ==
PROVIDERS: Emergency Provider Nurse Practitioner Family; PCP Family Medicine
DX: J01.90 Acute sinusitis, unspecified (principal); B96.89 Other specified bacterial agents as the cause of diseases classified elsewhere
CPT/HCPCS: 99213; G0463

== ENCOUNTER 2024-01-08 08:46 | Emergency (ER) | payer SELFPAY ==
--- NOTE | ~2024-01-08 | CT_ITS ---
CT of the Abdomen and Pelvis: Indication: Abdominal pain Technique: 2.5 mm axial scans were obtained through the abdomen and pelvis following intravenous adm inistration of 100 cc of Omnipaque 350. Dose reduction technique was used on this scan by utilizing a utomated exposure control and iterative reconstruction technique. The dose-length product (DLP) was 8 84.04 mGy-cm. COMPARISON: 08/03/2020 Findings: Scans through the lung bases are unremarkable. The liver, spleen, pancreas, adrenals and kidneys are within normal limits. Small gallstone present. No evidence of aortic aneurysm. No lymphadenopathy. No bowel obstruction or bowel wall thickening. There is no evidence to suggest acute appendicitis. Sm all fat-containing umbilical hernia noted. Images through the pelvis were performed. Urinary bladder unremarkable. No pelvic mass seen. No ascit es. Impression: Cholelithiasis. Small fat-containing umbilical hernia. Reviewed, dictated and finalized at [facility]. Impression: Cholelithiasis. Small fat-containing umbilical hernia.
[2024-01-08 08:55] VITALS: BP 134/96; PULSE 68; RESP 16; TEMP 36.6; O2SAT 100
[2024-01-08 09:44] LABS: Add Urine Microscopic? YES; Appearance Urine Cloudy (Clear); Bacteria Urine 1+ /hpf; Bilirubin Urine Negative (Negative); Blood Urine Trace (Negative); Color Urine Yellow (Yellow); Glucose Urine UA Negative (Negative); Ketones Urine Negative (Negative); Leukocyte Esterase Ur 3+ LEU/UL (Negative); Nitrate Urine Negative (Negative); Non Pathogenic Casts 0-2; Protein Urine Negative (Negative); Specific Grav Ur 1.012 (1.001-1.035); Squamous Epithelial Cell Urine Moderate /hpf (Few); Urobilinogen Urine 0.2 mg/dL (<2.0)
[2024-01-08 09:54] LABS: BEDSIDEPREGUCG Negative
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
[2024-01-08] MEDS: SODIUM CHLORIDE 0.9% IV 1,000 ML 999 ML IV CONT (10:29)
[2024-01-08] MEDS: ONDANSETRON INJ 4 MG/2 ML VIAL IV PUSH (10:30)
[2024-01-08] MEDS: FAMOTIDINE 20 MG/2 ML VIAL IV PUSH (10:30)
[2024-01-08 10:46] LABS: Basophils Percent Auto 0.6 % (0.2-1.2); Eosinophils Percent Auto 0.5 % (0-4.4); Hematocrit 44.4 % (37.0-47.0); Hemoglobin 14.6 g/dL (12.0-15.0); Immature Granulocyte Absolute 0.02 K/mm3 (0.00-0.031); Immature Granulocyte Percent A 0.3 % (0-0.5); Lymphocytes Absolute Auto 2.09 K/mm3 (0.9-3.2); Lymphocytes Percent Auto 31.9 % (18.3-44.2); Mean Corpuscular HGB Conc 32.9 g/dl (32-36); Mean Corpuscular Hemoglobin 31.7 pg (26-34); Mean Corpuscular Volume 96.3 fl (80-100); Mean Platelet Volume 9.5 fl (7.4-10.4); Monocytes Absolute Auto 0.4 K/mm3 (0.1-0.6); Monocytes Percent Auto 5.3 % (2.6-8.5); Neutrophils Percent Auto 61.4 % (45.5-73.1); Platelet Count Result 427 k/mm3 (150-375); Red Blood Count 4.61 M/mm3 (4.2-5.4); White Blood Count 6.6 K/mm3 (4.5-10.0)
[2024-01-08 11:12] LABS: Alanine Aminotransferase 33 U/L (6-35); Albumin Level 5.3 g/dL (3.5-5.1); Alkaline Phosphatase 78 U/L (38-126); Anion Gap 14 mmol/L (4-12); Aspartate Amino Transferase 31 U/L (14-36); Bilirubin,Total 0.6 mg/dL (0.2-1.3); Blood Urea Nitrogen 10 mg/dL (7-17); Calcium 9.8 mg/dL (8.4-10.2); Carbon Dioxide 23 mmol/L (22-30); Chloride 101 mmol/L (98-107); Estimated CRCL calculation 121 ml/min; Estimated Glomerular Filt Rate > 60; Glucose 85 mg/dL (65-110); Lipase 87 U/L (23-300); Sodium 138 mmol/L (137-145)
[2024-01-08 11:24] LABS: Influenza A QL RT-PCR Negative (Negative); Influenza B QL RT-PCR Negative (Negative); RSV RNA, RT-PCR Negative (Negative); SARS-CoV-2 RNA PCR Negative (Negative)
[2024-01-08 13:47] VITALS: BP 118/72; PULSE 76; RESP 16; TEMP 36.6; O2SAT 100
== END 2024-01-08 13:54 | disposition home or self-care (01) ==
PROVIDERS: Student in an Organized Health Care Education/Training Program; Emergency Provider Physician Assistant; PCP Family Medicine
DX: N39.0 Urinary tract infection, site not specified (principal); R11.2 Nausea with vomiting, unspecified; J45.909 Unspecified asthma, uncomplicated; K58.9 Irritable bowel syndrome, unspecified; Z86.16 Personal history of COVID-19; Z90.79 Acquired absence of other genital organ(s); Z79.899 Other long term (current) drug therapy
CPT/HCPCS: 36415; 74177; 80053; 81001; 81025; 83690; 85025; 87086; 87088; 87637; 96361; 96365; 96375; 99284; J0696; J2405; J7030; Q9967

== ENCOUNTER 2024-01-20 09:08 | Emergency (ER) | payer SELFPAY ==
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
[2024-01-20 09:26] VITALS: BP 132/85; PULSE 81; RESP 16; TEMP 36.6; O2SAT 99
[2024-01-20 09:36] LABS: EDSTREPNEGPOS1 Negative (Negative)
[2024-01-20 09:49] LABS: EDINFLUASCREEN Negative (Negative); EDINFLUBSCREEN Negative (Negative)
== END 2024-01-20 09:53 | disposition home or self-care (01) ==
PROVIDERS: Emergency Provider Nurse Practitioner Family; PCP Family Medicine
DX: J06.9 Acute upper respiratory infection, unspecified (principal); R05.9 Cough, unspecified; Z20.822 Contact with and (suspected) exposure to COVID-19; Z86.16 Personal history of COVID-19
CPT/HCPCS: 87081; 87426; 87804; 87880; 99213; G0463

== ENCOUNTER 2024-03-19 18:48 | Emergency (ER) | payer SELFPAY ==
--- NOTE | ~2024-03-19 | XR_ITS ---
HISTORY: fall down steps;pain toes 4 5(hx fx digit 5) COMPARISON: None TECHNIQUE: 3 views of the right foot were performed. FINDINGS: Oblique lucency within the distal margin of the fifth metatarsal, likely corresponding to patient's h istory of prior fracture deformity in this location. No acute fractures are appreciated. No significant degenerative disease is noted. The base of the fifth metatarsal is intact. No calcaneal spur is noted. IMPRESSION: No acute fracture or dislocation. Reviewed, dictated and finalized at location A. [facility]
--- NOTE | ~2024-03-19 | XR_ITS ---
HISTORY: fall down steps COMPARISON: None TECHNIQUE: 4 views of the right ankle were performed. FINDINGS: No acute fracture or dislocation.. Joint spaces are preserved and alignment is normal. Soft tissues are unremarkable without radiopaque foreign body or significant calcification. Normal mineralization. No soft tissue swelling. IMPRESSION: No acute fracture or dislocation Reviewed, dictated and finalized at location A. LE BROKER
[2024-03-19 18:50] VITALS: BP 137/93; PULSE 84; RESP 18; TEMP 36.5; O2SAT 98
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
[2024-03-19] MEDS: HYDROcodone/acetaminophen (*CRX) 5-325 MG TABLET 1 TAB PO (19:30)
[2024-03-19] MEDS: KETOROLAC 30 MG/ML VIAL (*BKC) 15 MG IM (19:49)
[2024-03-19 20:20] VITALS: BP 134/90; PULSE 84; RESP 18; TEMP 36.5; O2SAT 98
[2024-03-19 20:21] VITALS: BP 134/90; PULSE 84; RESP 18; TEMP 36.5; O2SAT 98
== END 2024-03-19 20:30 | disposition home or self-care (01) ==
PROVIDERS: Emergency Provider Student in an Organized Health Care Education/Training Program; PCP Family Medicine
DX: S90.121A Contusion of right lesser toe(s) without damage to nail, initial encounter (principal); W10.9XXA Fall (on) (from) unspecified stairs and steps, initial encounter
CPT/HCPCS: 73600; 73630; 96372; 99283; A9270; J1885

== ENCOUNTER 2024-06-16 13:27 | Emergency (ER) | payer SELFPAY ==
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
[2024-06-16 13:33] VITALS: BP 135/93; PULSE 82; RESP 18; TEMP 36.8; O2SAT 98
== END 2024-06-16 13:40 | disposition short-term general hospital (02) ==
PROVIDERS: Emergency Provider Nurse Practitioner Family; PCP Family Medicine
DX: K29.71 Gastritis, unspecified, with bleeding (principal); K92.0 Hematemesis
CPT/HCPCS: 99212; G0463

== ENCOUNTER 2024-07-03 10:08 | Emergency (ER) | payer SELFPAY ==
--- NOTE | ~2024-07-03 | XR_ITS ---
Clinical Indication: Cough PA and lateral views of the chest: Comparison: 04/06/2022 Findings: The lungs are clear, without evidence of focal consolidation or pleural effusion. Cardiome diastinal silhouette is within normal limits. Bones and soft tissues are unremarkable. Impression: Normal chest. Reviewed, dictated and finalized at [facility]. E JOBBER Impression: Normal chest.
[2024-07-03 10:17] VITALS: BP 124/80; PULSE 95; RESP 18; TEMP 36.6; O2SAT 98
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
[2024-07-03] MEDS: ALBUTEROL SULFATE NEB 2.5 MG/3 ML INH INHALATION (10:35)
[2024-07-03 10:45] VITALS: PULSE 95; RESP 16; O2SAT 95
== END 2024-07-03 11:10 | disposition home or self-care (01) ==
PROVIDERS: Emergency Provider Nurse Practitioner Family; PCP Family Medicine
DX: J20.9 Acute bronchitis, unspecified (principal); Z86.16 Personal history of COVID-19
CPT/HCPCS: 71046; 94640; 99213; G0463

== ENCOUNTER 2025-02-03 09:07 | Emergency (ER) | payer OTHER, SELFPAY ==
[2025-02-03 09:20] VITALS: BP 136/90; PULSE 91; RESP 16; TEMP 36.3; O2SAT 100
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
[2025-02-03 10:08] LABS: EDCOVIDSCREEN Negative (Negative); EDSTREPNEGPOS1 Negative (Negative)
== END 2025-02-03 10:04 | disposition home or self-care (01) ==
PROVIDERS: Emergency Provider Nurse Practitioner; PCP Family Medicine
DX: J06.9 Acute upper respiratory infection, unspecified (principal); Z20.822 Contact with and (suspected) exposure to COVID-19; J45.909 Unspecified asthma, uncomplicated; Z86.16 Personal history of COVID-19
CPT/HCPCS: 87081; 87426; 87880; 99213; G0463